=== PATIENT | female | born 1990 | race Caucasian/White ===

== ENCOUNTER 2016-11-10 11:40 | Emergency (ER) | payer SELFPAY ==
[2016-11-10 13:12] LABS: ABSOLUTE BASOPHILS # (AUTO) 0.1 10^3/uL (0.0-0.2); ABSOLUTE EOSINOPHILS # (AUTO) 0.4 10^3/uL (0.0-0.6); ABSOLUTE LYMPHOCYTES (AUTO) 2.2 10^3/uL (0.5-4.7); ABSOLUTE MONOCYTES (AUTO) 0.6 10^3/uL (0.1-1.4); ABSOLUTE NEUT (AUTO) 6.5 10^3/uL (1.7-8.2); BASOPHILS % (AUTO) 0.6 % (0-2); EOSINOPHILS % (AUTO) 4.2 % (0-6); HEMATOCRIT 41.8 % (36.0-47.0); HEMOGLOBIN 13.9 g/dL (12.0-15.5); HGB HCT DIFFERENCE -0.1; LYMPHOCYTES % (AUTO) 22.8 % (13-45); MEAN CORPUSCULAR HEMOGLOBIN 28.2 pg (27.0-33.4); MEAN CORPUSCULAR HGB CONC 33.1 g/dL (32.0-36.0); MEAN CORPUSCULAR VOLUME 85 fl (80-97); MONOCYTES % (AUTO) 6.4 % (3-13); RED BLOOD COUNT 4.91 10^6/uL (3.72-5.28); RED CELL DISTRIBUTION WIDTH 14.3 % (11.5-14.0); WHITE BLOOD COUNT 9.9 10^3/uL (4.0-10.5)
[2016-11-10 13:18] LABS: APPEARANCE,URINE CLEAR; BILIRUBIN,URINE NEGATIVE (NEGATIVE); GLUCOSE, URINE NEGATIVE (NEGATIVE); KETONES,URINE NEGATIVE (NEGATIVE); LEUKOCYTE ESTERASE,URINE NEGATIVE (NEGATIVE); NITRITE,URINE NEGATIVE (NEGATIVE); PROTEIN,URINE NEGATIVE (NEGATIVE); URINE SPECIFIC GRAVITY 1.021; UROBILINOGEN,URINE NEGATIVE mg/dL (<2.0)
--- NOTE | 2016-11-10 14:05 | ER Document Report ---
ED General - General Chief Complaint: Vaginal Discharge Stated Complaint: VAGINAL PAIN Time Seen by Provider: 11/10/16 12:20 Mode of Arrival: Ambulatory Information source: Patient Notes: Patient presents to the emergency with complaints of greenish/yellow vaginal discharge, low abdominal pain. She reports symptoms for 1 week. She reports she had unprotected sex with a person 1 month ago. She denies pain with void. She denies fever vomiting diarrhea. She denies past medical history of STD. TRAVEL OUTSIDE OF THE [place] IN LAST 30 DAYS: No - HPI Onset: Last week Onset/Duration: Sudden Quality of pain: Cramping Pain Level: 4 Associated symptoms: None Exacerbated by: Denies Similar symptoms previously: No Recently seen / treated by doctor: No - Related Data Allergies/Adverse Reactions: No Known Allergies Allergy (Verified 11/10/16 11:58) Past Medical History - General Information source: Patient - Social History Smoking Status: Current Every Day Smoker Cigarette use (# per day): Yes Frequency of alcohol use: Occasional Drug Abuse: None Occupation: [employer] Family History: CAD, Hyperlipidemia, Hypertension Patient has suicidal ideation: No Patient has homicidal ideation: No Renal/ Medical History: Denies: Hx Peritoneal Dialysis Musculoskeltal Medical History: Reports Hx Musculoskeletal Deformity, Reports Hx Musculoskeletal Trauma Traumatic Medical History: Reports: Hx Fractures, Hx Spine Fracture - L1 and 2 Surgical Hx: Negative - Immunizations Immunizations up to date: Yes Hx Diphtheria, Pertussis, Tetanus Vaccination: Yes Review of Systems - Review of Systems Notes: Review HPI for review of systems., All other systems negative Physical Exam - Vital signs Vitals: Temp Pulse Resp BP Pulse Ox 98.0 F 87 20 136/81 H 99 11/10/16 11:58 11/10/16 11:58 11/10/16 11:58 11/10/16 11:58 11/10/16 11:58 - Notes Notes: PHYSICAL EXAMINATION: GENERAL: Well-appearing and in no acute distress HEAD: Atraumatic, normocephalic. EYES: Pupils equal round and reactive to light, extraocular movements intact, sclera anicteric, conjunctiva are normal. ENT: nares patent, oropharynx clear without exudates. Moist mucous membranes. NECK: Normal range of motion, supple without lymphadenopathy LUNGS: CTAB and equal. No wheezes rales or rhonchi. HEART: Regular rate and rhythm without murmurs ABDOMEN: Soft, no tenderness. No guarding, no rebound EXTREMITIES: Normal range of motion, no pitting edema. No cyanosis. NEUROLOGICAL: Cranial nerves grossly intact. Normal sensory/motor exams. PSYCH: Normal mood, normal affect. SKIN: Warm, Dry, normal turgor, no rashes or lesions noted - Genitourinary External exam: Normal Speculum exam: Vaginal discharge Vaginal bleeding: None Bimanuel exam: Normal. No: Cervical motion tender, Adnexal tenderness Course - Re-evaluation Re-evalutation: 11/10/16 labs unremarkable, no odor with pelvic noted, Patient she did not want to wait for the results. She wants us to call her with the results. 11/10/16 18:29 prescription for zithromax 1 gm called in to [facility]. pt notified of chlamydia. - Vital Signs Vital signs: Temp Pulse Resp BP Pulse Ox 97.7 F 80 18 122/81 98 11/10/16 15:04 11/10/16 15:04 11/10/16 15:04 11/10/16 15:04 11/10/16 15:04 - Laboratory Result Diagrams: 11/10/16 12:30 Laboratory results interpreted by me: 11/10/16 11/10/16 12:30 13:25 RDW 14.3 H Chlamydia DNA (PCR) DETECTED H Procedures - Pelvic Exam Pelvic exam Cultures obtained: No - urine culture obtain for GC/CH Wet prep obtained: Yes Herpes culture obtained: No POC sent to lab: No Foreign body removed: No Witnessed by: CHACORTA CHANundercoat sprayer - Discharge Clinical Impression: Vaginal discharge, Elevated blood pressure reading Condition: Stable Disposition: HOME, SELF-CARE Instructions: Trichomonas Infection ([facility]), [facility], Chlamydia ([facility]), Gonorrhea ([facility]) Additional Instructions: *You have been evaluated for vaginal discharge, possible STD exposure *You have decided to leave before your results are completed. You will be contacted for positive cultures or results *Follow up with your [facility] or the health department for recheck within one week *Always use protection during sex- use condoms *Avoid sexual intercourse until follow up *Return to ED for worsening condition, changes, needs Monitor your blood pressure. Your blood pressure was elevated today. This may be because you were anxious, in pain or because you need medication. It is important to follow up with your primary care provider for full evaluation. Forms: Elevated Blood Pressure, Return to Work
[2016-11-10 15:06] VITALS: BP 122/81
[2016-11-10 15:06] LABS: CHLAM PCR DETECTED (NOT DETECT)
== END 2016-11-10 15:04 | disposition home or self-care (01) ==
LOC: ER 11:40
DX: A74.9 Chlamydial infection, unspecified (principal); N89.8 Other specified noninflammatory disorders of vagina; R10.2 Pelvic and perineal pain; R03.0 Elevated blood-pressure reading, without diagnosis of hypertension; F17.210 Nicotine dependence, cigarettes, uncomplicated
CPT/HCPCS: 36415; 81001; 84703; 85025; 87210; 87491; 87591; 99283